=== PATIENT | male | born 1940 | race Caucasian/White ===

== ENCOUNTER → 2018-07-03 12:05 | Outpatient (CLI) | payer MEDICARE, OTHER, SELFPAY ==
[2018-07-03 12:56] LABS: Hemoglobin A1C% w Est Avg Glu 8.6 % (4.0-6.0)
[2018-07-03 13:03] LABS: BUN Creatinine Ratio 23.3 (6-22); Blood Urea Nitrogen 42 mg/dL (9-20); Calcium 8.4 mg/dL (8.4-10.2); Carbon Dioxide 33 mmol/L (22-32); Chloride 99 mmol/L (98-107); Estimated Glomerular Filt Rate 36.7 mL/min (>60); Glucose 198 mg/dL (80-110); HEMOLYSIS < 15 (0-50); Magnesium 1.9 mg/dL (1.6-2.3); Potassium 4.7 mmol/L (3.4-5.1); Sodium 141 mmol/L (137-145)
[2018-07-03 13:17] LABS: Free T4, Direct Thyroxine 2.69 ng/dL (0.78-2.19)
[2018-07-03 13:31] LABS: Thyroid Stimulating Hormone < 0.02 uIU/mL (0.47-4.68)
== END ==
PROVIDERS: PCP Internal Medicine; Visit Provider Internal Medicine
DX: E03.9 Hypothyroidism, unspecified (principal); E11.9 Type 2 diabetes mellitus without complications; G25.0 Essential tremor
CPT/HCPCS: 36415; 80048; 83036; 83735; 84439; 84443

== ENCOUNTER → 2018-10-02 12:00 | Outpatient (CLI) | payer MEDICARE, OTHER, SELFPAY ==
[2018-10-02 13:46] LABS: Hemoglobin A1C% w Est Avg Glu 8.4 % (4.0-6.0)
== END ==
PROVIDERS: PCP Internal Medicine; Visit Provider Internal Medicine
DX: E11.9 Type 2 diabetes mellitus without complications (principal)
CPT/HCPCS: 36415; 83036